=== PATIENT | male | born 1935 | race African-American/Black ===

== ENCOUNTER 2019-05-18 07:33 | Day surgery (SDC) | payer OTHER ==
[2019-05-14 12:13] VITALS: BMI 31.7
--- NOTE | 2019-05-18 00:30 | HP ---
HISTORY OF PRESENT ILLNESS: Mr. Coombs is an 84-year-old man, presenting for symptoms of neurogenic claudication with severe lumbar stenosis from L3-L5 as seen on disk. He does have a grade 1 spondylolisthesis at L4-L5. He has treated this with injections and medications, but continues to struggle with pain. He hopes to discuss possible surgical intervention. PAST MEDICAL HISTORY: Includes cardiac arrhythmia, coronary arterial disease, hypertension, hyperlipidemia, chronic pain syndrome, diabetes, BPH. CURRENT MEDICATIONS: Triamcinolone, tamsulosin, sildenafil, rosuvastatin, potassium, metformin, losartan, furosemide, diclofenac, cholecalciferol, carvedilol, aspirin, amiodarone. PAST SURGICAL HISTORY: None listed. ALLERGIES: NO KNOWN DRUG ALLERGIES. PHYSICAL EXAMINATION: The patient is alert and oriented x3. Gait is severely antalgic. He has a stooped and slowed posture. ASSESSMENT: Spinal stenosis with neurogenic claudication. PLAN: Dr. Vazquez met with the patient, reviewed imaging, advocated for an L3-L5 decompression. He explained to the patient the risks, benefits, and alternatives to the procedure. The patient expressed understanding and elected to move forward with surgery as discussed. I do believe the patient is mentally competent and capable of making medical decisions for himself. We will move forward with surgery as planned. Job ID: [id number]
[2019-05-18] MEDS ORDERED: Clindamycin/D5W 900 mg/50 ml Premix Bag ONE (08:50)
[2019-05-18] MEDS ORDERED: Levofloxacin 500 mg/D5W 100 ml Premix Bag ONE (08:50)
[2019-05-18] MEDS ORDERED: Glycopyrrolate 0.2 MG/ML 5 ML SYRINGE ONE (10:21)
[2019-05-18] MEDS ORDERED: PHENYLEPHRINE-NS 100 MCG/ML 10 ML SYRINGE ONE (10:21)
[2019-05-18] MEDS ORDERED: EPHEDRINE 25 MG/5 ML SYRINGE ONE (10:21)
[2019-05-18] MEDS ORDERED: Lidocaine 1% PF 5 ML VIAL ONE (10:21)
[2019-05-18] MEDS ORDERED: PROPOFOL 200 MG/20 ML VIAL ONE (10:21)
[2019-05-18] MEDS ORDERED: Rocuronium Bromide 10 MG/ML (10ML VIAL) ONE (10:21)
[2019-05-18] MEDS ORDERED: Ondansetron PF 4 MG/2 ML Vial ONE (10:21)
[2019-05-18] MEDS ORDERED: EPINEPHrine 1 MG/ML AMP ONE (10:41)
[2019-05-18] MEDS ORDERED: Bupivacaine PF 0.5% 30 ML VIAL ONE (10:41)
[2019-05-18] MEDS ORDERED: Fentanyl 100 MCG/2 ML VIAL ONE ×2 (11:00→13:01)
[2019-05-18] MEDS ORDERED: SUGAMMADEX SODIUM 200 MG/2 ML VIAL ONE (12:36)
[2019-05-18] MEDS ORDERED: Tamsulosin HCl 0.4 MG CAP ONE (12:54)
--- NOTE | 2019-05-18 13:39 | OP ---
DATE OF PROCEDURE: 05/18/2019 SALES TECHNICIAN: Huber Jaime PA-C INDICATION: Pain. DIAGNOSIS: Lumbar stenosis with neurogenic claudication. PROCEDURE PERFORMED: L3 through L5 decompression. ANESTHESIA: General. DESCRIPTION OF PROCEDURE: The patient was brought into the operating room and placed under general anesthesia. He was flipped from the supine to prone position on the operating room table. A linear incision was planned spanning L3 through L5. After prepping and draping and after an appropriate operative pause, the incision was created. The soft tissues were swept away from midline. Self-retaining retractors were placed in the wound for optimal exposure. After confirming the appropriate levels with C-arm fluoroscopy, an Adson rongeur was used to remove the spinous process of L4, superior aspect of L5, and inferior aspect of L3. High-speed cutting drill bit as well as 2, 3, and 4 mm Kerrisons used to perform a laminectomy spanning L3 through L5. The laminectomy was extended laterally to encompass the medial aspect of the facet joints in order to decompress the lateral recesses. After completing the decompression, the wound was irrigated. Hemostasis was maintained throughout. The wound was then closed in anatomic layers and a pressure dressing was applied. There were no known procedural complications. Job ID: [id number]
== END 2019-05-18 21:30 | disposition home or self-care (01) ==
LOC: SDC 07:33
PROVIDERS: ATTEND Neurological Surgery
PROC: 00NY0ZZ Release Lumbar Spinal Cord, Open Approach (ICD-10-PCS; principal; 2019-05-18)
DX: M48.062 Spinal stenosis, lumbar region with neurogenic claudication (principal); I10 Essential (primary) hypertension; I25.10 Atherosclerotic heart disease of native coronary artery without angina pectoris; E11.9 Type 2 diabetes mellitus without complications; E78.5 Hyperlipidemia, unspecified; N40.0 Benign prostatic hyperplasia without lower urinary tract symptoms; Z79.82 Long term (current) use of aspirin; Z79.84 Long term (current) use of oral hypoglycemic drugs; Z79.899 Other long term (current) drug therapy; Z88.0 Allergy status to penicillin
CPT/HCPCS: 51798; 76000; J0171; J1956; J2001; J2405; J2704; J3010; J3490; J7620; S0020